=== PATIENT | female | born 1975 | race Caucasian/White ===

== ENCOUNTER 2021-12-06 08:07 | Emergency (ER) | payer OTHER, SELFPAY ==
[2021-12-06 08:20] VITALS: BP 131/69; PULSE 56; RESP 16; TEMP 36.8; O2SAT 100
--- NOTE | 2021-12-06 08:34 | ED.URI ---
HPI - URI/Sore Throat General Chief Complaint: Upper Respiratory Infection Stated Complaint: sore throat,cough Time Seen by Provider: 12/06/21 08:35 Source: patient and RN notes reviewed Mode of arrival: ambulatory Limitations: no limitations History of Present Illness HPI Narrative: 46-year-old female presents with concern for sore throat, cough. She reports she is dealing with seasonal allergies and so she has had some rhinorrhea and nasal congestion for several weeks for which she is using Xyzal and Flonase. Reports 6 days ago she began having a sore throat, recently noticed swollen lymph nodes. Reports other members of her family have similar symptoms. She denies fever, body aches, chills, sweats, shortness of breath. MD elicited complaint: cough and sore throat Related Data Allergies Allergy/AdvReac Type Severity Reaction Status Date / Time No Known Allergies Allergy Unknown Verified 12/06/21 08:33 Review of Systems Review of Systems: CONSTITUTIONAL: Reports malaise. Denies chills, sweats, or fever. EYES: Denies visual changes, redness, or discharge. ENT: Denies rhinorrhea, congestion, sinus pain, otalgia. Reports sore throat. CARDIOVASCULAR: Denies chest pain, palpitations, or edema. RESPIRATORY: Reports cough. Denies dyspnea. GASTROINTESTINAL: Denies abdominal pain, nausea, vomiting, diarrhea SKIN: Denies rash or itching. MUSCULOSKELETAL: Denies myalgia. NEUROLOGIC: Denies headache. All systems reviewed & are unremarkable except as noted in HPI and below PMFSH Comments At time of signature, agree with nursing past medical, surgical, social and family history. There is no relevant family history pertinent to the presenting complaint Exam Narrative: GENERAL: Well-appearing, well-nourished, and in no acute distress. HEAD: Normocephalic EYES: PERRLA, conjunctivae clear ENT: Nares clear, clear discharge. Mucous membranes moist. TM pearly son with sharp light reflex bilaterally; no tragal tenderness. Oropharynx mildly erythematous without lesions. Tonsils not enlarged and without exudate, no drooling, no hoarseness, no trismus, uvula midline. NECK: Supple. No lymphadenopathy CHEST: Clear to auscultation, breath sounds equal. No wheezing, rhonchi, rales, or stridor. No respiratory distress, speaks in full sentences. HEART: Regular rate and rhythm. No murmur heard. SKIN: Warm, dry, no rash. NEURO: Alert and oriented x3. PSYCH: Normal mood and affect Course Course Emergency Course: Patient is aware of diagnosis, understands and agrees to treatment plan. Anticipatory guidance given. Patient agrees to follow-up as directed and is aware of reasons to seek care at the emergency department. Portions of this record may have been created with voice recognition software Level of Care: Express Care Visit Vital Signs Vital signs: Vital Signs Temperature 98.3 F 12/06/21 08:20 Pulse Rate 56 L 12/06/21 08:20 Respiratory Rate 16 12/06/21 08:20 Blood Pressure 131/69 12/06/21 08:20 Pulse Oximetry 100 12/06/21 08:20 Oxygen Delivery Room Air 12/06/21 08:20 Temperature 98.3 F 12/06/21 08:20 Pulse Rate 56 L 12/06/21 08:20 Respiratory Rate 16 12/06/21 08:20 Blood Pressure 131/69 12/06/21 08:20 Pulse Oximetry 100 12/06/21 08:20 Oxygen Delivery Room Air 12/06/21 08:20 Reviewed. MDM - URI/Sore Throat MDM Narrative Medical decision making narrative: Differential diagnosis considered: Richter virus, strep pharyngitis, allergic rhinitis, upper respiratory tract infection, sinusitis, rhinosinusitis, nasopharyngitis. viral pharyngitis, otitis media, otitis externa, pneumonia, bronchitis, viral cough syndrome, viral syndrome, and influenza. Exam findings show no acute concerns or changes; patient is non-toxic appearing and is in no distress. Patient is appropriate for outpatient treatment and follow-up. Lab Data Attestation: I reviewed the patient's lab results. Critical Care Time Critical Car
== END 2021-12-06 09:01 | disposition home or self-care (01) ==
PROVIDERS: Emergency Provider Nurse Practitioner; PCP Nurse Practitioner Family
DX: R05.9 Cough, unspecified (principal); J02.9 Acute pharyngitis, unspecified; E03.9 Hypothyroidism, unspecified
CPT/HCPCS: 87081; 87880; 99203; G0463

== ENCOUNTER 2024-02-17 17:02 | Emergency (ER) | payer OTHER, SELFPAY ==
--- NOTE | ~2024-02-17 | XR_ITS ---
EXAMINATION: XR foot RT min 3V DATE: 02/17/2024 17:22 INDICATION: Posttraumatic generalized medial right foot pain TECHNIQUE: Dorsoplantar, two oblique and lateral views of the right foot were obtained. COMPARISON: None. FINDINGS: Alignment is normal. No fracture. Mild osteoarthritis at a few of the tarsal metatarsal joints and mi ld to moderate osteoarthritis at a few of the interphalangeal joints with distal predominance. Soft t issues are unremarkable. IMPRESSION: 1. 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 No acute osseous abnormalit y. Reviewed, dictated and finalized at location A. IMPRESSION: 1. 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 No ac quinault osseous abnormality.
[2024-02-17 17:10] VITALS: BP 119/82; PULSE 56; RESP 16; TEMP 37.4; O2SAT 100
--- NOTE | 2024-02-17 17:11 | ED.LOWEXIN ---
HPI - Extremity Injury (Lower) General Chief Complaint: Extremity Injury, Lower Stated Complaint: Right Foot Pain Time Seen by Provider: 02/17/24 17:11 Source: patient, RN notes reviewed and old records reviewed Mode of arrival: ambulatory Limitations: no limitations History of Present Illness HPI Narrative: 48-year-old female presents to [facility] with medial right foot pain with mild bruising. Patient states that she jammed it on the threshold of a door this morning. Has had swelling and mild bruising. Concern for fracture. Full range of motion, sensation intact and positive pedal pulses Onset (ago): hour(s) Related Data Home Medications Medication Instructions Recorded Confirmed No Home Medications 02/17/24 02/17/24 Allergies Allergy/AdvReac Type Severity Reaction Status Date / Time No Known Allergies Allergy Unknown Verified 12/06/21 08:33 Review of Systems Review of Systems: All systems reviewed & are unremarkable except as noted in HPI and below Constitutional: Constitutional: Reports no additional constitutional complaints Eyes: Eyes: Reports no additional eye complaints ENT: Reports system reviewed and no additional complaints, except as documented Cardiovascular: Cardiovascular: Reports no additional cardiovascular complaints, Denies chest pain and Denies dyspnea Respiratory: Respiratory: Reports no additional respiratory complaints, Denies chest congestion, Denies cough and Denies dyspnea Gastrointestinal: Gastrointestinal: Reports no additional gastrointestinal complaints, Denies abdominal pain, Denies nausea and Denies vomiting Musculoskeletal: Musculoskeletal: Reports as per HPI Integumentary/Breasts: Skin/Breast: Reports system reviewed and no additional complaints, except as docu Neurologic: Reports system reviewed and no additional complaints, except as documented Psychiatric: Psychiatric: Reports no additional psychiatric complaints Allergic/Immunologic: Allergic/Immunologic: Reports no additional allergic/immunologic complaints PMFSH Comments At the time of my signature, I reviewed and agree with the nursing past medical, surgical, social, and family history. There is no relevant family history pertinent to the patient complaint. Exam Const: General: cooperative, healthy appearing, comfortable, no acute distress, well developed, alert and well nourished Nutritional Appearance: well nourished Orientation/consciousness: patient oriented x3 Limitations: no limitations HENMT: Head: normal to inspection Ears: hearing grossly normal bilaterally and external ears normal Face/Nose/Sinus: Normal external nose present, Normal nares present, Normal nasal mucous membranes and turbinates present, normal facial exam and face symmetric Face and sinus: normal facial exam and face symmetric Eyes: General: appearance normal, both eyes and all related structures Alignment and Position: alignment normal Periorbital: periorbital findings normal Neck: Neck: normal visual inspection, full ROM, no lymphadenopathy and no meningeal signs Chest: Chest palpation & inspection: normal inspection of the chest Resp: Effort & Inspection: normal respiratory effort and able to speak in complete sentences Cardio: Rate: regular rate Skin: General skin exam: normal color and no rashes or lesions noted Lesions: no lesions Rashes: no rashes Trauma: no lacerations or abrasions Wounds: no wounds Neuro: General: patient oriented x3, gait normal, tone normal, moves all extremities and no meningeal signs Cranial nerves: Yes Equal, round and reactive pupils present Cognition (Neuro): normal cognition Speech: normal speech Gait exam (Neuro): Normal gait present Extrem: General: normal to inspection, full ROM, capillary refill normal and normal gait Right lower extremity: foot Details: tenderness Location: of the medial foot Location: distally, in the mid-section and proximally, toes with normal ROM, ecchymo
== END 2024-02-17 17:36 | disposition home or self-care (01) ==
PROVIDERS: Emergency Provider Nurse Practitioner; PCP Nurse Practitioner Family
DX: S90.31XA Contusion of right foot, initial encounter (principal); W22.09XA Striking against other stationary object, initial encounter; E03.9 Hypothyroidism, unspecified
CPT/HCPCS: 73630; 99213; G0463